=== PATIENT | female | born 1945 | race Caucasian/White ===

== ENCOUNTER 2017-07-29 11:00 | Emergency (ER) | payer MEDICARE ==
[2017-07-29] MEDS: HYDROcodone/APAP 5/325MG 1 TAB TABLET PO (12:16)
[2017-07-29] MEDS: CYCLOBENZAPRINE 10 MG TABLET. PO (12:16)
== END 2017-07-29 13:55 | disposition home or self-care (01) ==
LOC: ER 11:00
DX: S76.011A Strain of muscle, fascia and tendon of right hip, initial encounter (principal); J45.909 Unspecified asthma, uncomplicated; I10 Essential (primary) hypertension; E78.00 Pure hypercholesterolemia, unspecified; Z88.0 Allergy status to penicillin; Z90.710 Acquired absence of both cervix and uterus; X58.XXXA Exposure to other specified factors, initial encounter; Y93.89 Activity, other specified; Y92.89 Other specified places as the place of occurrence of the external cause; Y99.8 Other external cause status
CPT/HCPCS: 72100; 73502; 99284